=== PATIENT | male | born 1970 | race Asian ===

== ENCOUNTER 2018-11-24 18:19 | Inpatient (IN) | payer OTHER ==
[~2018-11-24] VITALS: Ht 182.9 cm; Wt 88.9 kg
[2018-11-24 18:40] VITALS: Ht 182.9 cm; Wt 88.9 kg
[2018-11-24 19:05] LABS: BASOPHIL % 0.2 % (0-2); PLATELET COUNT 280 x10^3mcL (130-400); RED CELL DISTRIBUTION WIDTH 12.2 % (11.5-14.5)
[2018-11-24 19:14] LABS: CALCIUM 10.1 mg/dL (8.5-10.1); CARBON DIOXIDE 30.9 mmol/L (21-32); CHLORIDE SERUM 104 mmol/L (98-107); CREATININE SERUM 0.9 mg/dL (0.7-1.3); GFR1 > 60 mL/min; GLUCOSE SERUM 104 mg/dL (74-106); POTASSIUM SERUM 4.1 mmol/L (3.5-5.1); SODIUM SERUM 142 mmol/L (136-145)
[2018-11-24 19:18] LABS: ALKALINE PHOSPHATASE 71 U/L (46-116); ALT/SGPT 39 U/L (16-63); AST/SGOT 19 U/L (15-37); BILIRUBIN TOTAL 0.6 mg/dL (0.20-1.00); TOTAL PROTEIN, SERUM 7.9 g/dL (6.4-8.2)
--- NOTE | 2018-11-24 19:45 | NUR ---
PT PRESENTS TO ED WITH C/O ABDOMINAL PAIN SINCE 1300. PT STATES THAT THE PAIN BEGAN AFTER EATING "STEAMED CRAB AND FISH". PT STATES TO GENERALIZED ABDOMINAL PAIN THAT IS WORSE IN THE RLQ AND RUQ. PT STATES TO NAUSEA BUT DENIES VOMITING, DIARRHEA, OR CONSTIPATION. PT ABDOMEN SOFT BUT TENDER TO PALPATION. PT AOX4, RESP EVEN AND UNLABORED, MILD DISTRESS FROM PAIN NOTED.
--- NOTE | 2018-11-24 20:21 | NUR ---
PT OFF FLOOR FOR CT SCAN
--- NOTE | 2018-11-24 20:58 | NUR ---
PT RESTING IN A POSITION OF COMFORT AT THIS TIME. PT AOX4, RESP EVEN AND UNLABORED, NO ACUTE DISTRESS NOTED. PT DENIES NAUSEA AT THIS TIME, STATES THAT THE PAIN IS DECREASED BUT STILL THERE. PT DAUGHTER REMAINS AT BEDSIDE.
--- NOTE | 2018-11-24 22:22 | NUR ---
PT REQUESTING ADDITIONAL PAIN MEDICATION AT THIS TIME FOR A PAIN LEVEL OF 7/10. PT REMAIN ON FULL CM. PT AOX4, RESP EVEN AND UNLABORED, NO ACUTE DISTRESS NOTED. FAMILY AT BEDSIDE.
--- NOTE | 2018-11-24 23:45 | NUR ---
PT REPORT CALLED TO MALISSA TA TO ASSUME PT CARE.
--- NOTE | 2018-11-24 23:58 | NUR ---
PT TRANSFERRED TO 226A BY WHEELCHAIR BY SMITA PLATA. PT AOX4, RESP EVEN AND UNLABORED, NO ACUTE DISTRESS NOTED. PT ACCEPTED BY MALISSA TA TO ASSUME PT CARE.
[2018-11-25 00:39] VITALS: BP 108/74
--- NOTE | 2018-11-25 00:42 | NUR ---
RECEIVED PT FROM ED VIA ERICK. ORIENTED PT TO ROOM AND SURROUNDINGS. IV NOTED TO LAC PATENT AND INTACT. INSTRUCTED PT ON THE USE OF CALL LIGHT FOR ASSISTANCE. ENDORSED PT TO PRIMARY NURSE MALISSA
[2018-11-25 05:38] VITALS: BP 109/72
[2018-11-25 05:41] LABS: microscopic required? NO
[2018-11-25 05:47] LABS: UA SPECIFIC GRAVITY 1.015 (1.005-1.035); urine erythrocyte NEGATIVE (NEGATIVE)
--- NOTE | 2018-11-25 06:15 | NUR ---
CHECKLIST STARTED. CHG PRE OP WIPES DONE. UA COLLECTED AND SENT TO LAB. IV TO RAC IN PLACE, REMAINS PATENT, DRY, AND INTACT. NO SIGNIFICANT CHANGES TO REPORT, PT COMPLIED WITH NURSING CARE THROUGHOUT THE SHIFT WITH NO ACUTE EVENTS OVERNIGHT. NO ACUTE DISTRESS OBSERVED AT THIS TIME, PT LAYING IN BED, BREATHING EVEN AND UNLABORED. COMFORT AND SAFETY MEASURES MAINTAINED. ALL NEEDS ASSESSED AND ATTENDED TO. CALL LIGHT WITHIN REACH. WILL CONTINUE TO MONITOR AND ENDORSE CARE TO DAY SHIFT NURSE
[2018-11-25 06:22] LABS: AMPHETAMINE QUAL UR NONE DETECTED (See below)
[2018-11-25 06:30] LABS: BASOPHIL % 0.2 % (0-2); PLATELET COUNT 236 x10^3mcL (130-400); RED CELL DISTRIBUTION WIDTH 11.9 % (11.5-14.5)
[2018-11-25 06:55] LABS: CALCIUM 9.6 mg/dL (8.5-10.1); CARBON DIOXIDE 24.7 mmol/L (21-32); CHLORIDE SERUM 102 mmol/L (98-107); GFR1 > 60 mL/min; GLUCOSE SERUM 103 mg/dL (74-106); POTASSIUM SERUM 3.9 mmol/L (3.5-5.1); SODIUM SERUM 138 mmol/L (136-145)
--- NOTE | 2018-11-25 08:00 | NUR ---
RECEIVED PT IN BED. DENIES ANY PAIN. ASSESSED AND WILL DOCUMENT. STABLE. NPO THIS TIME FOR SCHEDULED LAP APPY. SAFTEY PRECAUTIONS ARE IN PLACE. WILL MONITOR.
--- NOTE | 2018-11-25 09:35 | NUR ---
OR STAFF TOOK PT TO OR VIA [facility]. INDIVIDUAL PENSION CONSULTANT SAID THEY WILL DO CONSENT IN OR. PT STABLE. DENIES PAIN. CHECK LIST DONE. LANRE WIPE DONE.
[2018-11-25 09:48] VITALS: BP 111/78
--- NOTE | 2018-11-25 13:05 | NUR ---
RECIEVED PT FROM OR AFTER LAP APPY. INCISION X3 WITH DERMABOND AND 1 INCISION WITH GAUZE. DENIES ANY PAIN. SCD'S TO BLE. V/S STABLE. TR=612/65, HR 64, RESP=16, TEMP=97.8 AND 97% IN RA. FAMILY AT BEDSIDE.
--- NOTE | 2018-11-25 15:00 | NUR ---
PT GOT UP AND AMBULATED TO BATHROOM AND VOIDED. STABLE. DENIES PAIN.
--- NOTE | 2018-11-25 18:00 | NUR ---
PT IS STABLE. AMBULATED IN THE HALLWAY. DENIES PAIN. FAMILY AT BEDSIDE.
[2018-11-25 18:29] VITALS: BP 98/64
--- NOTE | 2018-11-25 19:05 | NUR ---
PT RESTING IN BED. FAMILY AT BEDSIDE. GAVE REPORT TO REGISTERED NURSE MATERNAL CHILD NURSE.
--- NOTE | 2018-11-25 20:08 | NUR ---
RECEIVED PATIENT IN BED AWAKE. ALERT AND ORIENTED WITH NO C/O POST OPERATIVE PAIN AT THIS TIME. SURGICAL INCISION TO ABDOMEN WITH X3 DERMABOBD AND X1 WITH GAUZE DRESSING CDI. BREATHING EASY AND NONLABO SATTING AT 99% RA. ABDOMEN SOFT ROUND AND NONTENDER. WILL CONTINUE TO MONITOR, FAMILY MEMBERS AT BEDSIDE.
[2018-11-25 22:16] VITALS: BP 100/61
--- NOTE | 2018-11-26 00:48 | NUR ---
STILL AWAKE RESTING IN BED WATCHING TELEVISOPN. DENIES POST OPERATIVE PAIN.
--- NOTE | 2018-11-26 05:16 | NUR ---
SLEPT AT LONG INTERVALS. DENIES POST OPERATIVE PAIN THE ENTIRE SHIFT. ALL NEEDS ATTENDED.
[2018-11-26 05:52] VITALS: BP 99/66
[2018-11-26 06:36] LABS: BASOPHIL % 0.1 % (0-2); PLATELET COUNT 220 x10^3mcL (130-400); RED CELL DISTRIBUTION WIDTH 12.4 % (11.5-14.5)
[2018-11-26 07:11] LABS: CREATININE SERUM 0.9 mg/dL (0.7-1.3); GFR1 > 60 mL/min
[2018-11-26 07:12] LABS: CALCIUM 8.9 mg/dL (8.5-10.1); CARBON DIOXIDE 28.8 mmol/L (21-32); CHLORIDE SERUM 107 mmol/L (98-107); GLUCOSE SERUM 119 mg/dL (74-106); PHOSPHOROUS 3.5 mg/dL (2.5-4.9); SODIUM SERUM 144 mmol/L (136-145)
--- NOTE | 2018-11-26 07:40 | NUR ---
RECEIVED PT IN BED. ASSESSED AND DOCUMENTED. DENIES ANY PAIN. AT BEDSIDE. SAFTEY PRECAUTIONS ARE IN PLACE. WILL MONITOR.
[2018-11-26 09:15] VITALS: BP 108/69
--- NOTE | 2018-11-26 11:00 | NUR ---
PT TOLERATED WITH CL DIET, INFORMED SUPERVISOR FUNCTIONAL TESTING ABOUT THAT. AMBULATED IN THE HALLWAY WELL. DENIES ANY PAIN. INCISION X4 TO ABD WITH DRESSING CDI.
[2018-11-26] MEDS ORDERED: TOR10 PO (13:11)
--- NOTE | 2018-11-26 13:30 | NUR ---
INFORMED PT ABOUT HE HAS BEEN DISCHARGED. AT BEDSIDE. THEY SAID HIS DAUGHTER WILL COME AT 5 PM TO PICK HIM UP. CHARGE NURSE AWARE. PT HAD FULL LIQUID DIET AND TOLERATED WELL. AMBULATED IN THE [address]. DENIES ANY PAIN.
[2018-11-26 13:32] VITALS: BP 108/69
--- NOTE | 2018-11-26 17:20 | NUR ---
PT'S DAUGHTER CAME TO SHEET METAL DUCT INSTALLER APPRENTICE PT. DENIES ANY PAIN. GAUZE DRESSING TO LOWER ABDOMINAL INCISION CHANGED PER . OTHER INCISIONS WITH DERMABOND,CDI. STABLE. DISCHARGE INSTRUCTIONS AND PRESCRIPTION GIVEN. PB SIGNED AND SENT WITH PT. IV REMOVED AND DRESSING APPLIED. PRODUCT DEVELOPMENT SPECIALIST WHEELED PT DOWN TO LOBBY ACCOMPANIED WITH FAMILY. DC HOME.
== END 2018-11-26 17:29 | disposition home or self-care (01) | DRG 343 ==
LOC: ED 18:19 → MU 23:18
PROVIDERS: Surgery; ADMIT General Practice
PROC: 0DTJ4ZZ Resection of Appendix, Percutaneous Endoscopic Approach (ICD-10-PCS; principal; 2018-11-25 10:30)
DX: K35.80 Unspecified acute appendicitis (principal)
CPT/HCPCS: 82962; 94150; G0378; J0330; J0690; J1170; J2270; J2405; J2543; J2704; J2710; J3010; J3490; J7030; J7120; Q0092; Q9967